=== PATIENT | male | born 1980 | race Caucasian/White ===

== ENCOUNTER 2017-01-28 09:30 | Emergency (ER) | payer OTHER ==
[~2017-01-28] VITALS: Ht 188 cm; Wt 83.9 kg
[~2017-01-28 09:30] MED LIST: AUGMENTIN875 MG PO; CLEOCIN300 MG PO; ENDOCET 5-3251 EACH PO; FOCALIN XR40 MG PO; GABAPENTIN600 MG PO; IBUPROFEN800 MG PO; LEVAQUIN500 MG PO; LOPRESSOR50 MG PO; METOPROLOL TART50 MG PO; NAPROXEN500 MG PO; NEURONTIN600 MG PO; NO MEDS; NOHOMEMEDS; OMEPRAZOLE20 MG PO; PEN-VEE K,VEET500 MG PO; PERCOCET 5/31 TABLET PO; PREDNISONE10 MG PO; PROVENTIL HFA6.7 GM IH; SYMBICORT60 INHALAT IH; TYLENOL WITH C1 EACH PO; ULTRAM50 MG PO; ZITHROMAX250 MG PO
[2017-01-28 09:34] VITALS: BP 124/98
[2017-01-28] MEDS ORDERED: ADVIL,NUPRIN,M200 MG PO (10:29)
[2017-01-28] MEDS ORDERED: SUBUTEX PO (10:31)
[2017-01-28] MEDS ORDERED: NAPROXEN500 MG PO (10:37)
== END 2017-01-28 11:03 | disposition home or self-care (01) ==
LOC: EME 09:30
DX: S83.412A Sprain of medial collateral ligament of left knee, initial encounter (principal); X50.9XXA Other and unspecified overexertion or strenuous movements or postures, initial encounter; F10.129 Alcohol abuse with intoxication, unspecified; F17.200 Nicotine dependence, unspecified, uncomplicated
CPT/HCPCS: 73564; 99281; 99283; J1885

== ENCOUNTER 2017-06-24 02:09 | Emergency (ER) | payer OTHER ==
[~2017-06-24] VITALS: Ht 188 cm; Wt 81.8 kg
[~2017-06-24 02:09] MED LIST changes: +ADVIL,NUPRIN,M200 MG PO; +NORCO 5/3251 TABLET PO; +SUBUTEX PO
[2017-06-24 06:06] VITALS: BP 105/59
== END 2017-06-24 06:07 | disposition home or self-care (01) ==
LOC: EME 02:09
DX: M25.552 Pain in left hip (principal); F11.20 Opioid dependence, uncomplicated; F17.200 Nicotine dependence, unspecified, uncomplicated
CPT/HCPCS: 73502; 99281; 99284; J2270

== ENCOUNTER 2017-07-29 11:07 | Emergency (ER) | payer OTHER ==
[~2017-07-29] VITALS: Ht 188 cm; Wt 87.1 kg
[2017-07-29 14:18] VITALS: BP 102/65
== END 2017-07-29 14:19 | disposition left against medical advice (07) ==
LOC: EME 11:07
DX: R04.2 Hemoptysis (principal); R07.81 Pleurodynia; J45.909 Unspecified asthma, uncomplicated; F17.200 Nicotine dependence, unspecified, uncomplicated; I10 Essential (primary) hypertension; F32.9 Major depressive disorder, single episode, unspecified; K21.9 Gastro-esophageal reflux disease without esophagitis
CPT/HCPCS: 71046; 80048; 85027; 94640

== ENCOUNTER 2017-08-02 11:56 | Emergency (ER) | payer OTHER ==
[~2017-08-02] VITALS: Ht 188 cm; Wt 92.1 kg
[2017-08-02] MEDS ORDERED: LEVAQUIN500 MG PO (15:21)
[2017-08-02 15:37] VITALS: BP 157/58
== END 2017-08-02 15:38 | disposition home or self-care (01) ==
LOC: EME 11:56
DX: J18.9 Pneumonia, unspecified organism (principal); J45.909 Unspecified asthma, uncomplicated; K21.9 Gastro-esophageal reflux disease without esophagitis; I10 Essential (primary) hypertension; F32.9 Major depressive disorder, single episode, unspecified; F17.200 Nicotine dependence, unspecified, uncomplicated
CPT/HCPCS: 71250; 99281; 99283

== ENCOUNTER 2017-09-30 23:51 | Emergency (ER) | payer OTHER | END 2017-09-30 23:53 | LOC: EME 23:51 | PROC: 5A12012 Performance of Cardiac Output, Single, Manual (ICD-10-PCS; principal; 2017-09-30) | DX: I46.9 Cardiac arrest, cause unspecified (principal); T40.1X1A Poisoning by heroin, accidental (unintentional), initial encounter | CPT/HCPCS: 99281; 99284 ==